=== PATIENT | male | born 1930 | race Caucasian/White ===

== ENCOUNTER 2017-10-02 14:59 | Outpatient (CLI) | payer MEDICARE, OTHER | END 2017-10-02 15:00 | disposition home or self-care (01) | LOC: BICULT 14:59 | PROVIDERS: ATTEND Internal Medicine | DX: I82.591 Chronic embolism and thrombosis of other specified deep vein of right lower extremity (principal) ==

== ENCOUNTER 2021-08-19 11:32 | Inpatient (IN) | payer MEDICARE, OTHER ==
[~2021-08-19 11:32] MED LIST: Iopamidol-370 76% 500 ML 1 ML ONE
[2021-08-19] MEDS ORDERED: Acetaminophen 650 MG Suppository ONE (11:57)
[2021-08-19] MEDS ORDERED: Cefepime 2 GM VIAL ONE (12:10)
[2021-08-19 12:14] LABS: Hemoglobin 13.1 g/dL (14.0-18.0); Mean Corpuscular HGB CONC 34.1 g/dL (32.0-36.0); Mean Corpuscular Hemoglobin 32.9 pg (27.0-31.0); Mean Corpuscular Volume 96.4 fL (78.0-98.0); Mean Platelet Volume 7.4 fL (7.4-10.4); Platelet Count 227 thou/uL (130-400); RBC Distribution Width 11.8 % (11.5-14.5); Red Blood Cell (RBC) Count 3.98 mill/uL (4.70-6.10); White Blood Cell (WBC) Count 12.3 thou/uL (4.8-10.8)
[2021-08-19] MEDS ORDERED: VANCOMYCIN 1.25 GM/250 ML BAG 1.25 GM in Premix Bag 1 BAG IVPB SCH (12:15)
[2021-08-19 12:19] LABS: Bacteria/HPF None Seen HPF (None Seen); Bilirubin Negative (Negative); Blood, Urine 1+ (Negative); Clarity Clear (Clear); Glucose, Urine (Dipstick) Normal (Negative); Ketone, Urine 20 mg/dL (Negative); Leukocyte Negative Leu/uL (Negative); Nitrite Negative (Negative); Protein, Urine (Dipstick) 50 mg/dL (Neg-Trace); RBC/HPF 0-3 HPF (0-3); Specific Gravity, Urine 1.019 (1.002-1.036); Squamous Epithelial None Seen HPF (0-3); Urobilinogen Normal mg/dL (Less than 2); WBC/HPF 0-3 HPF (0-3); pH, Urine 5.5 (5.0-9.0)
[2021-08-19 12:25] LABS: INR-International Normal Ratio 1.3; PTT 38.9 sec (22.9-36.1); Prothrombin Time 15.9 sec (12.0-14.7)
[2021-08-19 12:32] LABS: Band 40 % (5-11); Lymphocytes 5 % (21-51); MDiff Complete? YES; Monocytes 13 % (0-10); Neutrophil 37 % (42-75); Platelet Morphology Comment Appears Adequate; RBC Morphology Normal; Reactive Lymphocytes 4 % (0-10)
[2021-08-19 12:34] LABS: ALT (SGPT) 9 U/L (8-55); AST (SGOT) 19 U/L (5-34); Albumin 3.5 g/dL (3.4-4.8); Alkaline Phosphatase 83 U/L (40-110); Anion Gap 14 mmol/L (10-20); BUN (Urea Nitrogen) 18 mg/dL (8.4-25.7); Bilirubin, Total 0.8 mg/dL (0.2-1.2); Calc. Creatinine Clearance 0 mL/min (70-130); Calcium 8.8 mg/dL (7.8-10.44); Carbon Dioxide 24 mmol/L (23-31); Chloride 105 mmol/L (98-107); Globulin 3.2 g/dL (2.4-3.5); Glucose 176 mg/dL (83-110); Lipase 11 U/L (8-78); Potassium 3.4 mmol/L (3.5-5.1); Protein, Total 6.7 g/dL (5.8-8.1); Sodium 140 mmol/L (136-145)
[2021-08-19 14:21] LABS: SARS-CoV-2 NAA Rapid Test Not Detected (NotDetected)
[2021-08-19] MEDS ORDERED: Ketorolac Tromethamine 30 MG/ML VIAL ONE (14:30)
[2021-08-19] MEDS ORDERED: Ondansetron ODT 4 MG TAB PO PRN (15:35)
[2021-08-19] MEDS ORDERED: Ondansetron PF 4 MG/2 ML Vial IVP PRN (15:35)
[2021-08-19] MEDS ORDERED: Acetaminophen 325 MG TAB PO PRN (15:35)
[2021-08-19 17:48] VITALS: BMI 29.0
[2021-08-19] MEDS ORDERED: Sodium Chloride 0.9% 1,000 ML IV SCH (18:45)
[2021-08-19] MEDS ORDERED: Potassium Chloride 20 MEQ TAB PO SCH (20:15)
[2021-08-19] MEDS ORDERED: Electrolyte Replacement Protocol FS PRN (20:15)
[2021-08-19] MEDS ORDERED: Famotidine 20 MG TAB PO SCH (21:00)
[2021-08-19] MEDS ORDERED: Vancomycin 1 GM in Premix Bag 1 BAG IVPB SCH (21:00)
[2021-08-19] MEDS: Metoprolol Tartrate 25 MG TAB PO SCH (21:02)
[2021-08-19] MEDS: Cefepime 1 GM in Sodium Chloride 0.9% 100 ML IVPB SCH (21:02)
[2021-08-19] MEDS: Carbidopa/Levodopa 25-250 mg Tablet PO SCH (21:03)
[2021-08-19 22:59] LABS: Campy jejuni + coli by PCR Negative (Negative); STEC Shiga Toxin 1+2 Negative (Negative); Salmonella spp. by PCR Negative (Negative); Shigella spp + EIEC by PCR Negative (Negative)
[2021-08-19] MEDS ORDERED: Sodium Chloride 0.9% 500 ML IV SCH (23:45)
[2021-08-19] MEDS ORDERED: Metoprolol Tartrate 5 MG/5 ML VIAL IVP PRN (23:55)
[2021-08-20] MEDS: Sodium Chloride 0.9% 1,000 ML IV SCH ×3 (02:44→15:53)
[2021-08-20 05:42] LABS: #Lymphocytes 0.7 thou/uL (1.20-3.40); #Monocytes 0.8 thou/uL (0.11-0.59); #Neutrophils 8.2 thou/uL (1.40-6.50); %Basophils 0.2 % (0.0-1.0); %Eosinophils 0.1 % (0.0-10.0); %Monocytes 8.4 % (0.0-10.0); %Neutrophils 84.2 % (42.0-75.0); Hemoglobin 12.4 g/dL (14.0-18.0); Mean Corpuscular HGB CONC 32.5 g/dL (32.0-36.0); Mean Corpuscular Hemoglobin 31.6 pg (27.0-31.0); Mean Corpuscular Volume 97.3 fL (78.0-98.0); Mean Platelet Volume 7.8 fL (7.4-10.4); Platelet Count 180 thou/uL (130-400); Red Blood Cell (RBC) Count 3.92 mill/uL (4.70-6.10); White Blood Cell (WBC) Count 9.8 thou/uL (4.8-10.8)
[2021-08-20 06:11] LABS: ALT (SGPT) Less than 7 U/L (8-55); AST (SGOT) 22 U/L (5-34); Albumin 2.7 g/dL (3.4-4.8); Alkaline Phosphatase 63 U/L (40-110); Anion Gap 13 mmol/L (10-20); BUN (Urea Nitrogen) 25 mg/dL (8.4-25.7); Bilirubin, Total 0.6 mg/dL (0.2-1.2); Calc. Creatinine Clearance 42 mL/min (70-130); Calcium 8.1 mg/dL (7.8-10.44); Carbon Dioxide 21 mmol/L (23-31); Chloride 112 mmol/L (98-107); Globulin 2.7 g/dL (2.4-3.5); Glucose 164 mg/dL (83-110); Potassium 3.7 mmol/L (3.5-5.1); Protein, Total 5.4 g/dL (5.8-8.1); Sodium 142 mmol/L (136-145)
[2021-08-20] MEDS: Metoprolol Tartrate 25 MG TAB PO SCH (08:55)
[2021-08-20] MEDS: Carbidopa/Levodopa 25-250 mg Tablet PO SCH ×3 (08:55→15:54)
[2021-08-20] MEDS: Finasteride 5 MG TAB PO SCH (08:55)
[2021-08-20] MEDS: Dabigatran 150 mg Capsule PO SCH (08:56)
[2021-08-20] MEDS: Cefepime 1 GM in Sodium Chloride 0.9% 100 ML IVPB SCH (08:56)
[2021-08-20] MEDS ORDERED: Oxybutynin ER 5 MG TAB PO SCH (09:00)
[2021-08-20] MEDS ORDERED: Lisinopril 10 MG TAB PO SCH (09:00)
[2021-08-20] MEDS ORDERED: Enoxaparin Sodium 40 MG/0.4 ML SYRINGE SC SCH (09:00)
[2021-08-20] MEDS ORDERED: Saccharomyces boulardii 250 MG CAP PO SCH (09:45)
[2021-08-20] MEDS ORDERED: cefTRIAXone\\ROCEPHIN 2 GM in Sodium Chloride 0.9% 100 ML IVPB SCH (10:15)
[2021-08-20] MEDS ORDERED: metroNIDAZOLE 500 MG in Premix Bag 1 BAG IVPB SCH (10:30)
[2021-08-20] MEDS: Vancomycin 25 MG/ML Oral SOLN PO SCH ×2 (11:08→15:54)
[2021-08-20 11:44] LABS: Magnesium 1.4 mg/dL (1.6-2.6); Phosphorus 2.8 mg/dL (2.3-4.7)
[2021-08-20] MEDS ORDERED: Magnesium Sulfate In Water 4 GM in Premix Bag 1 BAG IVPB SCH (12:00)
[2021-08-20] MEDS ORDERED: VANCOMYCIN 1.25 GM/250 ML BAG 1.25 GM in Premix Bag 1 BAG IVPB SCH (14:00)
[2021-08-20] MEDS: metroNIDAZOLE 500 MG in Premix Bag 1 BAG IVPB SCH (17:16)
[2021-08-20] MEDS: Famotidine 20 MG TAB PO SCH (21:51)
[2021-08-21] MEDS: Vancomycin 25 MG/ML Oral SOLN PO SCH ×4 (00:32→17:24)
[2021-08-21] MEDS: metroNIDAZOLE 500 MG in Premix Bag 1 BAG IVPB SCH ×3 (01:47→17:57)
[2021-08-21] MEDS: Sodium Chloride 0.9% 1,000 ML IV SCH ×4 (04:21→23:14)
[2021-08-21 06:19] LABS: Band 53 % (5-11); Hemoglobin 12.3 g/dL (14.0-18.0); Lymphocytes 1 % (21-51); MDiff Complete? YES; Mean Corpuscular HGB CONC 32.8 g/dL (32.0-36.0); Mean Corpuscular Hemoglobin 31.5 pg (27.0-31.0); Mean Corpuscular Volume 96.2 fL (78.0-98.0); Mean Platelet Volume 8.9 fL (7.4-10.4); Monocytes 11 % (0-10); Neutrophil 35 % (42-75); Platelet Count 184 thou/uL (130-400); Platelet Morphology Comment Appears Adequate; RBC Distribution Width 11.8 % (11.5-14.5); RBC Morphology Normal; White Blood Cell (WBC) Count 13.6 thou/uL (4.8-10.8)
[2021-08-21] MEDS: Carbidopa/Levodopa 25-250 mg Tablet PO SCH ×3 (06:22→17:24)
[2021-08-21 06:31] LABS: Carbon Dioxide 17 mmol/L (23-31); Chloride 111 mmol/L (98-107); Potassium 3.7 mmol/L (3.5-5.1); Sodium 137 mmol/L (136-145)
[2021-08-21 06:32] LABS: ALT (SGPT) 7 U/L (8-55); AST (SGOT) 29 U/L (5-34); Albumin 2.6 g/dL (3.4-4.8); Alkaline Phosphatase 62 U/L (40-110); Anion Gap 13 mmol/L (10-20); BUN (Urea Nitrogen) 29 mg/dL (8.4-25.7); Bilirubin, Total 0.3 mg/dL (0.2-1.2); Calc. Creatinine Clearance 45 mL/min (70-130); Calcium 7.9 mg/dL (7.8-10.44); Globulin 2.6 g/dL (2.4-3.5); Glucose 178 mg/dL (83-110); Magnesium 2.2 mg/dL (1.6-2.6); Phosphorus 2.5 mg/dL (2.3-4.7); Protein, Total 5.2 g/dL (5.8-8.1)
[2021-08-21] MEDS: Multivit, Therapeutic 1 TAB PO SCH (08:51)
[2021-08-21] MEDS: Dabigatran 150 mg Capsule PO SCH (08:51)
[2021-08-21] MEDS: Saccharomyces boulardii 250 MG CAP PO SCH (08:51)
[2021-08-21] MEDS ORDERED: Sodium Chloride 0.9% 1,000 ML IV SCH (08:57)
[2021-08-21] MEDS: Finasteride 5 MG TAB PO SCH (08:58)
[2021-08-21] MEDS ORDERED: Metoprolol Tartrate 25 MG TAB PO SCH ×2 (09:00→11:45)
[2021-08-21] MEDS ORDERED: Diltiazem HCl 125 MG in Premix Bag 1 BAG IVPB SCH (10:15)
[2021-08-21 10:33] LABS: CKMB 7.5 ng/mL (0-6.6)
[2021-08-21] MEDS ORDERED: Metoprolol Tartrate 5 MG/5 ML VIAL IVP SCH (11:45)
[2021-08-21 14:31] LABS: CKMB 6.9 ng/mL (0-6.6)
[2021-08-21] MEDS ORDERED: Amiodarone 150 MG, Admixture Fee 1 EACH in Dextrose 5% in Water 100 ML IVPB SCH (15:30)
[2021-08-21] MEDS: Amiodarone 450 MG, Admixture Fee 1 EACH in Dextrose 5% in Water 250 ML IVPB SCH (16:19)
[2021-08-21] MEDS ORDERED: metroNIDAZOLE 500 MG TAB PO SCH (18:15)
[2021-08-21] MEDS: Metoprolol Tartrate 25 MG TAB PO SCH (23:14)
[2021-08-21] MEDS: Famotidine 20 MG TAB PO SCH (23:14)
[2021-08-22] MEDS: Vancomycin 25 MG/ML Oral SOLN PO SCH ×4 (01:01→19:30)
[2021-08-22] MEDS: metroNIDAZOLE 500 MG TAB PO SCH ×2 (02:45→08:58)
[2021-08-22] MEDS: Amiodarone 450 MG, Admixture Fee 1 EACH in Dextrose 5% in Water 250 ML IVPB SCH (02:45)
[2021-08-22 04:27] LABS: Band 31 % (5-11); Hemoglobin 12.4 g/dL (14.0-18.0); Lymphocytes 11 % (21-51); MDiff Complete? YES; Mean Corpuscular HGB CONC 33.4 g/dL (32.0-36.0); Mean Corpuscular Hemoglobin 32.1 pg (27.0-31.0); Mean Corpuscular Volume 96.2 fL (78.0-98.0); Mean Platelet Volume 7.2 fL (7.4-10.4); Monocytes 7 % (0-10); Neutrophil 51 % (42-75); Platelet Count 229 thou/uL (130-400); Platelet Morphology Comment Appears Adequate; RBC Morphology Normal; Red Blood Cell (RBC) Count 3.86 mill/uL (4.70-6.10); White Blood Cell (WBC) Count 19.4 thou/uL (4.8-10.8)
[2021-08-22 04:45] LABS: ALT (SGPT) 7 U/L (8-55); AST (SGOT) 21 U/L (5-34); Albumin 2.5 g/dL (3.4-4.8); Alkaline Phosphatase 65 U/L (40-110); Anion Gap 11 mmol/L (10-20); BUN (Urea Nitrogen) 34 mg/dL (8.4-25.7); Bilirubin, Total 0.4 mg/dL (0.2-1.2); CRP (Inflammatory) 15.15 mg/dL (= or < 0.5); Calc. Creatinine Clearance 42 mL/min (70-130); Calcium 8.1 mg/dL (7.8-10.44); Carbon Dioxide 22 mmol/L (23-31); Chloride 108 mmol/L (98-107); Globulin 2.4 g/dL (2.4-3.5); Glucose 230 mg/dL (83-110); Magnesium 2.1 mg/dL (1.6-2.6); Phosphorus 1.4 mg/dL (2.3-4.7); Potassium 3.3 mmol/L (3.5-5.1); Protein, Total 4.9 g/dL (5.8-8.1); Sodium 138 mmol/L (136-145)
[2021-08-22] MEDS: Sodium Chloride 0.9% 1,000 ML IV SCH ×2 (06:20→14:45)
[2021-08-22] MEDS: PHOS-NAK 1 PKT PACK PO SCH ×3 (06:20→16:30)
[2021-08-22] MEDS: Saccharomyces boulardii 250 MG CAP PO SCH (08:58)
[2021-08-22] MEDS: Multivit, Therapeutic 1 TAB PO SCH (08:58)
[2021-08-22] MEDS: Carbidopa/Levodopa 25-250 mg Tablet PO SCH ×3 (08:58→17:31)
[2021-08-22] MEDS: Finasteride 5 MG TAB PO SCH (08:58)
[2021-08-22] MEDS: Metoprolol Tartrate 25 MG TAB PO SCH ×2 (08:58→21:39)
[2021-08-22] MEDS: Dabigatran 150 mg Capsule PO SCH (08:59)
[2021-08-22] MEDS ORDERED: Insulin Regular 300 UNITS/3 ML VIAL SC PRN (10:51)
[2021-08-22] MEDS ORDERED: Dextrose 5% in Water 1,000 ML IV PRN (10:51)
[2021-08-22] MEDS ORDERED: Dextrose 50% Abboject 50 ML SYRINGE SLOW IVP PRN (10:51)
[2021-08-22] MEDS: Artificial Tear Sol 15 ML BOT EA EYE PRN (12:15)
[2021-08-22] MEDS: Insulin Regular 300 UNITS/3 ML VIAL SC PRN ×2 (12:16→17:33)
[2021-08-22] MEDS ORDERED: Potassium Phosphate 15 MMOL in Sodium Chloride 0.9% 250 ML 250 ML IVPB SCH (17:00)
[2021-08-22] MEDS: metroNIDAZOLE 500 MG in Premix Bag 1 BAG IVPB SCH (17:31)
[2021-08-22] MEDS ORDERED: Sodium Chloride 0.9% 1,000 ML IV SCH (21:30)
[2021-08-22] MEDS: Famotidine 20 MG TAB PO SCH (21:39)
[2021-08-23] MEDS: Vancomycin 25 MG/ML Oral SOLN PO SCH ×5 (01:05→23:32)
[2021-08-23] MEDS: metroNIDAZOLE 500 MG in Premix Bag 1 BAG IVPB SCH ×3 (02:30→17:22)
[2021-08-23] MEDS: Artificial Tear Sol 15 ML BOT EA EYE PRN (03:49)
[2021-08-23 04:19] LABS: ALT (SGPT) Less than 7 U/L (8-55); AST (SGOT) 23 U/L (5-34); Albumin 2.4 g/dL (3.4-4.8); Alkaline Phosphatase 69 U/L (40-110); Anion Gap 11 mmol/L (10-20); BUN (Urea Nitrogen) 30 mg/dL (8.4-25.7); Bilirubin, Total 0.3 mg/dL (0.2-1.2); Calc. Creatinine Clearance 47 mL/min (70-130); Calcium 7.7 mg/dL (7.8-10.44); Carbon Dioxide 18 mmol/L (23-31); Chloride 112 mmol/L (98-107); Globulin 2.3 g/dL (2.4-3.5); Glucose 184 mg/dL (83-110); Phosphorus 2.4 mg/dL (2.3-4.7); Potassium 3.1 mmol/L (3.5-5.1); Protein, Total 4.7 g/dL (5.8-8.1); Sodium 138 mmol/L (136-145)
[2021-08-23 04:54] LABS: Band 26 % (5-11); Hemoglobin 11.7 g/dL (14.0-18.0); Hypochromia SLIGHT = 6-15 cells (100X) (0-5/hpf); Lymphocytes 3 % (21-51); MDiff Complete? YES; Mean Corpuscular HGB CONC 32.9 g/dL (32.0-36.0); Mean Corpuscular Hemoglobin 31.9 pg (27.0-31.0); Mean Platelet Volume 7.1 fL (7.4-10.4); Monocytes 12 % (0-10); Neutrophil 58 % (42-75); Platelet Count 222 thou/uL (130-400); Platelet Morphology Comment Appears Adequate; Reactive Lymphocytes 1 % (0-10); Red Blood Cell (RBC) Count 3.66 mill/uL (4.70-6.10); White Blood Cell (WBC) Count 20.1 thou/uL (4.8-10.8)
[2021-08-23] MEDS: Finasteride 5 MG TAB PO SCH (09:23)
[2021-08-23] MEDS: Amiodarone 200 MG TAB PO SCH ×2 (09:23→20:52)
[2021-08-23] MEDS: Multivit, Therapeutic 1 TAB PO SCH (09:23)
[2021-08-23] MEDS: Metoprolol Tartrate 25 MG TAB PO SCH ×2 (09:24→20:52)
[2021-08-23] MEDS: Carbidopa/Levodopa 25-250 mg Tablet PO SCH ×3 (09:24→17:25)
[2021-08-23] MEDS: Saccharomyces boulardii 250 MG CAP PO SCH (09:24)
[2021-08-23] MEDS: Dabigatran 150 mg Capsule PO SCH (09:24)
[2021-08-23] MEDS: Insulin Regular 300 UNITS/3 ML VIAL SC PRN ×2 (12:05→17:22)
[2021-08-23] MEDS: Potassium Citrate 1100-334mg/5ml Oral Solution PO SCH ×3 (12:30→21:01)
[2021-08-23] MEDS: Famotidine 20 MG TAB PO SCH (20:52)
[2021-08-23] MEDS: Sodium Chloride 0.9% 1,000 ML IV SCH (21:01)
[2021-08-24] MEDS: metroNIDAZOLE 500 MG in Premix Bag 1 BAG IVPB SCH ×3 (02:23→17:08)
[2021-08-24 04:54] LABS: ALT (SGPT) 7 U/L (8-55); AST (SGOT) 32 U/L (5-34); Albumin 2.4 g/dL (3.4-4.8); Alkaline Phosphatase 82 U/L (40-110); Anion Gap 11 mmol/L (10-20); BUN (Urea Nitrogen) 21 mg/dL (8.4-25.7); Bilirubin, Total 0.4 mg/dL (0.2-1.2); Calc. Creatinine Clearance 57 mL/min (70-130); Calcium 7.9 mg/dL (7.8-10.44); Carbon Dioxide 19 mmol/L (23-31); Chloride 114 mmol/L (98-107); Globulin 2.3 g/dL (2.4-3.5); Glucose 149 mg/dL (83-110); Magnesium 1.9 mg/dL (1.6-2.6); Phosphorus 1.8 mg/dL (2.3-4.7); Potassium 3.4 mmol/L (3.5-5.1); Protein, Total 4.7 g/dL (5.8-8.1); Sodium 141 mmol/L (136-145)
[2021-08-24 05:08] LABS: Band 20 % (5-11); Eosinophils 7 % (0-10); Hemoglobin 12.1 g/dL (14.0-18.0); Lymphocytes 7 % (21-51); MDiff Complete? YES; Mean Corpuscular HGB CONC 33.4 g/dL (32.0-36.0); Mean Corpuscular Hemoglobin 32.1 pg (27.0-31.0); Mean Corpuscular Volume 96.1 fL (78.0-98.0); Mean Platelet Volume 9.2 fL (7.4-10.4); Metamyelocyte 1 % (0-0); Monocytes 6 % (0-10); Myelocyte 1 % (0-0); Neutrophil 56 % (42-75); Platelet Count 195 thou/uL (130-400); RBC Distribution Width 12.1 % (11.5-14.5); Reactive Lymphocytes 2 % (0-10); Red Blood Cell (RBC) Count 3.78 mill/uL (4.70-6.10); White Blood Cell (WBC) Count 14.8 thou/uL (4.8-10.8)
[2021-08-24] MEDS ORDERED: PHOS-NAK 1 PKT PACK PO SCH (05:15)
[2021-08-24] MEDS: Vancomycin 25 MG/ML Oral SOLN PO SCH ×3 (05:37→17:08)
[2021-08-24] MEDS: Carbidopa/Levodopa 25-250 mg Tablet PO SCH ×3 (06:34→17:08)
[2021-08-24] MEDS: Saccharomyces boulardii 250 MG CAP PO SCH (08:13)
[2021-08-24] MEDS: Multivit, Therapeutic 1 TAB PO SCH (08:13)
[2021-08-24] MEDS: Dabigatran 150 mg Capsule PO SCH (08:13)
[2021-08-24] MEDS: Finasteride 5 MG TAB PO SCH (08:13)
[2021-08-24] MEDS: Potassium Citrate 1100-334mg/5ml Oral Solution PO SCH ×2 (08:13→12:40)
[2021-08-24] MEDS: Amiodarone 200 MG TAB PO SCH ×2 (08:13→21:40)
[2021-08-24] MEDS: Insulin Regular 300 UNITS/3 ML VIAL SC PRN ×2 (11:50→17:08)
[2021-08-24] MEDS ORDERED: Magnesium 2 GM/50 ML(in water) 2 GM in Premix Bag 1 BAG IVPB SCH (14:00)
[2021-08-24] MEDS ORDERED: Potassium Phosphate 15 MMOL in Sodium Chloride 0.9% 250 ML 250 ML IVPB SCH (14:00)
[2021-08-24] MEDS: Famotidine 20 MG TAB PO SCH (21:39)
[2021-08-24] MEDS: Artificial Tear Sol 15 ML BOT EA EYE PRN (21:42)
[2021-08-25] MEDS: Vancomycin 25 MG/ML Oral SOLN PO SCH ×4 (01:05→18:04)
[2021-08-25] MEDS: metroNIDAZOLE 500 MG in Premix Bag 1 BAG IVPB SCH ×3 (03:03→18:04)
[2021-08-25 04:35] LABS: Albumin 2.4 g/dL (3.4-4.8); Anion Gap 11 mmol/L (10-20); BUN (Urea Nitrogen) 19 mg/dL (8.4-25.7); BUN/Creatinine Ratio 16.67; Calc. Creatinine Clearance 58 mL/min (70-130); Calcium 7.7 mg/dL (7.8-10.44); Carbon Dioxide 22 mmol/L (23-31); Chloride 113 mmol/L (98-107); Glucose 149 mg/dL (83-110); Magnesium 2.3 mg/dL (1.6-2.6); Phosphorus 2.5 mg/dL (2.3-4.7); Potassium 3.4 mmol/L (3.5-5.1); Sodium 143 mmol/L (136-145)
[2021-08-25 05:11] LABS: Hemoglobin 11.7 g/dL (14.0-18.0); Mean Corpuscular HGB CONC 33.3 g/dL (32.0-36.0); Mean Corpuscular Hemoglobin 32.1 pg (27.0-31.0); Mean Corpuscular Volume 96.4 fL (78.0-98.0); Mean Platelet Volume 8.4 fL (7.4-10.4); Platelet Count 200 thou/uL (130-400); RBC Distribution Width 12.3 % (11.5-14.5); Red Blood Cell (RBC) Count 3.64 mill/uL (4.70-6.10); White Blood Cell (WBC) Count 11.7 thou/uL (4.8-10.8)
[2021-08-25 05:50] LABS: Band 28 % (5-11); Eosinophils 4 % (0-10); Lymphocytes 20 % (21-51); MDiff Complete? YES; Monocytes 2 % (0-10); Neutrophil 46 % (42-75)
[2021-08-25] MEDS ORDERED: Potassium Chloride 20 MEQ TAB PO SCH (09:15)
[2021-08-25] MEDS: Multivit, Therapeutic 1 TAB PO SCH (09:38)
[2021-08-25] MEDS: Dabigatran 150 mg Capsule PO SCH (09:38)
[2021-08-25] MEDS: Finasteride 5 MG TAB PO SCH (09:38)
[2021-08-25] MEDS: Carbidopa/Levodopa 25-250 mg Tablet PO SCH ×3 (09:38→18:04)
[2021-08-25] MEDS: Saccharomyces boulardii 250 MG CAP PO SCH (09:38)
[2021-08-25] MEDS: Amiodarone 200 MG TAB PO SCH ×2 (09:38→21:20)
[2021-08-25] MEDS: Sodium Chloride 0.9% 1,000 ML IV SCH (14:11)
[2021-08-25] MEDS: Insulin Regular 300 UNITS/3 ML VIAL SC PRN (14:13)
[2021-08-25] MEDS: Famotidine 20 MG TAB PO SCH (21:20)
[2021-08-26] MEDS: Vancomycin 25 MG/ML Oral SOLN PO SCH ×4 (01:02→17:12)
[2021-08-26] MEDS: metroNIDAZOLE 500 MG in Premix Bag 1 BAG IVPB SCH ×3 (01:47→17:12)
[2021-08-26] MEDS: Saccharomyces boulardii 250 MG CAP PO SCH (08:29)
[2021-08-26] MEDS: Dabigatran 150 mg Capsule PO SCH (08:29)
[2021-08-26] MEDS: Finasteride 5 MG TAB PO SCH (08:29)
[2021-08-26] MEDS: Multivit, Therapeutic 1 TAB PO SCH (08:29)
[2021-08-26] MEDS: Amiodarone 200 MG TAB PO SCH ×2 (08:29→21:15)
[2021-08-26] MEDS: Carbidopa/Levodopa 25-250 mg Tablet PO SCH ×3 (08:30→17:12)
[2021-08-26] MEDS: Insulin Regular 300 UNITS/3 ML VIAL SC PRN ×2 (12:54→17:12)
[2021-08-26] MEDS: Sodium Chloride 0.9% 1,000 ML IV SCH (17:41)
[2021-08-26] MEDS: Famotidine 20 MG TAB PO SCH (21:15)
[2021-08-27] MEDS: Vancomycin 25 MG/ML Oral SOLN PO SCH ×4 (01:00→18:04)
[2021-08-27] MEDS: metroNIDAZOLE 500 MG in Premix Bag 1 BAG IVPB SCH ×3 (01:01→18:06)
[2021-08-27 03:49] LABS: #Eosinphils 0.3 thou/uL (0.0-0.7); #Lymphocytes 2.4 thou/uL (1.20-3.40); #Neutrophils 8.2 thou/uL (1.40-6.50); %Basophils 0.4 % (0.0-1.0); %Eosinophils 2.4 % (0.0-10.0); %Lymphocytes 19.9 % (21.0-51.0); %Monocytes 8.6 % (0.0-10.0); %Neutrophils 68.8 % (42.0-75.0); Hemoglobin 10.8 g/dL (14.0-18.0); Mean Corpuscular HGB CONC 32.7 g/dL (32.0-36.0); Mean Corpuscular Hemoglobin 31.5 pg (27.0-31.0); Mean Corpuscular Volume 96.2 fL (78.0-98.0); Mean Platelet Volume 6.6 fL (7.4-10.4); Platelet Count 276 thou/uL (130-400); RBC Distribution Width 12.4 % (11.5-14.5); Red Blood Cell (RBC) Count 3.43 mill/uL (4.70-6.10); White Blood Cell (WBC) Count 11.9 thou/uL (4.8-10.8)
[2021-08-27 04:01] LABS: Anion Gap 9 mmol/L (10-20); BUN (Urea Nitrogen) 12 mg/dL (8.4-25.7); Calc. Creatinine Clearance 67 mL/min (70-130); Calcium 7.6 mg/dL (7.8-10.44); Carbon Dioxide 24 mmol/L (23-31); Chloride 110 mmol/L (98-107); Glucose 154 mg/dL (83-110); Sodium 140 mmol/L (136-145)
[2021-08-27] MEDS: Sodium Chloride 0.9% 1,000 ML IV SCH ×2 (05:09→20:15)
[2021-08-27] MEDS: Carbidopa/Levodopa 25-250 mg Tablet PO SCH ×3 (09:36→18:04)
[2021-08-27] MEDS: Artificial Tear Sol 15 ML BOT EA EYE PRN (09:39)
[2021-08-27] MEDS: Dabigatran 150 mg Capsule PO SCH (09:39)
[2021-08-27] MEDS: Finasteride 5 MG TAB PO SCH (09:40)
[2021-08-27] MEDS: Potassium Chloride 20 MEQ TAB PO SCH ×4 (09:40→20:14)
[2021-08-27] MEDS: Saccharomyces boulardii 250 MG CAP PO SCH (09:40)
[2021-08-27] MEDS: Amiodarone 200 MG TAB PO SCH ×2 (09:40→20:14)
[2021-08-27] MEDS: Multivit, Therapeutic 1 TAB PO SCH (09:40)
[2021-08-27] MEDS ORDERED: Zolpidem Tartrate 5 MG TAB PO PRN (10:11)
[2021-08-27] MEDS ORDERED: Venlafaxine XR 37.5 MG CAP PO SCH (16:30)
[2021-08-27] MEDS: Famotidine 20 MG TAB PO SCH (20:14)
[2021-08-28] MEDS: Potassium Chloride 20 MEQ TAB PO SCH ×6 (01:11→21:27)
[2021-08-28] MEDS: Vancomycin 25 MG/ML Oral SOLN PO SCH ×5 (01:11→23:38)
[2021-08-28] MEDS: metroNIDAZOLE 500 MG in Premix Bag 1 BAG IVPB SCH ×3 (01:12→17:13)
[2021-08-28] MEDS: Sodium Chloride 0.9% 1,000 ML IV SCH (03:35)
[2021-08-28] MEDS: Carbidopa/Levodopa 25-250 mg Tablet PO SCH ×3 (06:38→16:24)
[2021-08-28] MEDS: Insulin Regular 300 UNITS/3 ML VIAL SC PRN ×3 (06:38→17:16)
[2021-08-28 08:07] LABS: Anion Gap 11 mmol/L (10-20); BUN (Urea Nitrogen) 14 mg/dL (8.4-25.7); Calc. Creatinine Clearance 65 mL/min (70-130); Carbon Dioxide 24 mmol/L (23-31); Chloride 110 mmol/L (98-107); Glucose 177 mg/dL (83-110); Potassium 4.5 mmol/L (3.5-5.1); Sodium 140 mmol/L (136-145)
[2021-08-28] MEDS: Multivit, Therapeutic 1 TAB PO SCH (10:03)
[2021-08-28] MEDS: Amiodarone 200 MG TAB PO SCH ×2 (10:03→21:26)
[2021-08-28] MEDS: Lisinopril 10 MG TAB PO SCH (10:04)
[2021-08-28] MEDS: Venlafaxine XR 37.5 MG CAP PO SCH (10:04)
[2021-08-28] MEDS: Finasteride 5 MG TAB PO SCH (10:04)
[2021-08-28] MEDS: Saccharomyces boulardii 250 MG CAP PO SCH (10:04)
[2021-08-28] MEDS ORDERED: metFORMIN 500 MG TAB PO SCH ×2 (11:15→11:30)
[2021-08-28] MEDS: Dabigatran 150 mg Capsule PO SCH (11:50)
[2021-08-28] MEDS: Famotidine 20 MG TAB PO SCH (21:26)
[2021-08-29] MEDS: Potassium Chloride 20 MEQ TAB PO SCH ×2 (00:33→05:11)
[2021-08-29] MEDS: metroNIDAZOLE 500 MG in Premix Bag 1 BAG IVPB SCH ×2 (02:33→09:08)
[2021-08-29] MEDS: Vancomycin 25 MG/ML Oral SOLN PO SCH ×2 (05:12→12:33)
[2021-08-29 05:15] LABS: Anion Gap 11 mmol/L (10-20); BUN (Urea Nitrogen) 11 mg/dL (8.4-25.7); Calc. Creatinine Clearance 73 mL/min (70-130); Calcium 8.4 mg/dL (7.8-10.44); Carbon Dioxide 24 mmol/L (23-31); Chloride 110 mmol/L (98-107); Glucose 167 mg/dL (83-110); Potassium 5.2 mmol/L (3.5-5.1); Sodium 140 mmol/L (136-145)
[2021-08-29] MEDS: Sodium Chloride 0.9% 1,000 ML IV SCH (05:32)
[2021-08-29] MEDS ORDERED: metFORMIN 500 MG TAB PO SCH (09:00)
[2021-08-29] MEDS: Carbidopa/Levodopa 25-250 mg Tablet PO SCH ×2 (09:07→12:12)
[2021-08-29] MEDS: Venlafaxine XR 37.5 MG CAP PO SCH (09:08)
[2021-08-29] MEDS: Lisinopril 10 MG TAB PO SCH (09:08)
[2021-08-29] MEDS: Dabigatran 150 mg Capsule PO SCH (09:08)
[2021-08-29] MEDS: Multivit, Therapeutic 1 TAB PO SCH (09:08)
[2021-08-29] MEDS: Saccharomyces boulardii 250 MG CAP PO SCH (09:08)
[2021-08-29] MEDS: Finasteride 5 MG TAB PO SCH (09:08)
[2021-08-29] MEDS: Amiodarone 200 MG TAB PO SCH (09:08)
[2021-08-29 12:19] VITALS: BP 167/79; TEMP 97.9
[2021-08-29] MEDS: Insulin Regular 300 UNITS/3 ML VIAL SC PRN (12:33)
== END 2021-08-29 16:45 | DRG 871 ==
LOC: SUATTDRO 11:32 → ERS 11:32 → NEURO 15:09 → IMCU/EMU 08-21 20:19 → 2NO 08-27 21:56
PROVIDERS: ADMIT Internal Medicine; ATTEND Internal Medicine
DX: A41.4 Sepsis due to anaerobes (principal); Z66 Do not resuscitate; Z51.5 Encounter for palliative care; Z20.822 Contact with and (suspected) exposure to COVID-19; G92.8 Other toxic encephalopathy; N17.9 Acute kidney failure, unspecified; A04.72 Enterocolitis due to Clostridium difficile, not specified as recurrent; E44.0 Moderate protein-calorie malnutrition; I82.501 Chronic embolism and thrombosis of unspecified deep veins of right lower extremity; R65.20 Severe sepsis without septic shock; I48.0 Paroxysmal atrial fibrillation; E87.6 Hypokalemia; N18.30 Chronic kidney disease, stage 3 unspecified; E11.22 Type 2 diabetes mellitus with diabetic chronic kidney disease; D63.1 Anemia in chronic kidney disease; I12.9 Hypertensive chronic kidney disease with stage 1 through stage 4 chronic kidney disease, or unspecified chronic kidney disease; G20 Parkinson's disease; K82.8 Other specified diseases of gallbladder; I08.3 Combined rheumatic disorders of mitral, aortic and tricuspid valves; R94.02 Abnormal brain scan; E83.42 Hypomagnesemia; E83.39 Other disorders of phosphorus metabolism; G47.00 Insomnia, unspecified; Z88.5 Allergy status to narcotic agent; Z78.1 Physical restraint status; Z79.899 Other long term (current) drug therapy; Z79.84 Long term (current) use of oral hypoglycemic drugs; Z79.01 Long term (current) use of anticoagulants; Z68.33 Body mass index [BMI] 33.0-33.9, adult
CPT/HCPCS: 36415; 36416; 51701; 70450; 71045; 74177; 76705; 80048; 80053; 80069; 81003; 81015; 82533; 82550; 82553; 82607; 82746; 83605; 83690; 83735; 84100; 84484; 85025; 85610; 85730; 86140; 87040; 87086; 87324; 87328; 87329; 87449; 87505; 87804; 93005; 93010; 93306; 96361; 96365; 96366; 96367; 96375; J0282; J0692; J0696; J1815; J1885; J1956; J3370; J3475; J3490; J7050; J7070; Q9967; U0002; U0003; U0005